=== PATIENT | female | born 1985 | race Caucasian/White ===

== ENCOUNTER 2017-06-02 15:30 | Outpatient (CLI) | payer OTHER ==
[2017-06-02] VITALS (7 sets, daily range): BP systolic 113–130; BP diastolic 68–87
[~2017-06-02] VITALS: Ht 162.6 cm; Wt 79.0 kg
[2017-06-02] MEDS ORDERED: PRENTAB9 PO (16:54)
[2017-06-02] MEDS ORDERED: ASPI81CH PO (16:54)
[2017-06-02 17:58] LABS: ALT/SGPT 13 U/L (12-78); AST/SGOT 13 U/L (15-37); BILIRUBIN,TOTAL 0.7 MG/DL (0.2-1.0); CREATININE FOR GFR 0.62 MG/DL (0.55-1.02); GLOMERULAR FILTRATION RATE > 60.0 (>60); URIC ACID 4.4 MG/DL (2.6-6.0)
--- NOTE | 2017-06-04 10:26 | HPE ---
DATE OF ADMISSION: 06/02/2017 HISTORY: 32-year-old, 2, para 1, last menstrual period (LMP) 09/11/2016, expected date of confinement (EDC) 06/18/2017, at 37 and 5 weeks of gestation with a history of preeclampsia with severe features in her last today coming in with a blood pressure of 145/77 and having brisk reflexes, but no clonus. She has no other symptoms of preeclampsia. She was seen for evaluation of presentation of possible preeclampsia. She is presently on aspirin 81 mg a day. Her past history is that in 2014 at 37 weeks, induction of labor for severe features of preeclampsia, delivered a male, 5 pounds 14 ounces. Labs show O positive. HIV negative. Hepatitis negative. RPR negative. Rubella immune. Varicella immune. Pap normal. Gonorrhea and Chlamydia are negative. One hour glucose is 125. GBS status is pending. On examination, she has no headache. No right upper quadrant pain. No visual disturbances. No edema. She does have brisk reflexes upper and lower. She does have a Category 1 strip with no contractions. Her initial blood pressure was 135/75; however, over the course of her two hour stay, her blood pressures ranged from a low 113/77 to a high of 130/87. In between, intermittently, 129/75 and 125/86. Her CBC does not seem to be available. Her urine is 1.029, pH 7, everything negative. On chemistry, uric acid was 4.4 and her liver enzymes were normal. Her protein creatinine ratio was 0.106. On reevaluation, her reflexes were still brisk, but there was no other symptoms or symptomatology. We have counseled her regarding preeclampsia symptoms. Will have her collect a 24-hour urine. She will be seen next week on Wednesday for evaluation and dating for induction of labor between 39 and 40 weeks. In summary, history with previous preeclampsia, severe features, presently investigated for late preeclampsia.
== END 2017-06-02 19:00 | disposition home or self-care (01) ==
LOC: M LDO 15:30
PROVIDERS: ATTEND Obstetrics & Gynecology
DX: O26.893 Other specified pregnancy related conditions, third trimester (principal); Z3A.37 37 weeks gestation of pregnancy; R03.0 Elevated blood-pressure reading, without diagnosis of hypertension; Z79.82 Long term (current) use of aspirin; Z88.1 Allergy status to other antibiotic agents

== ENCOUNTER → 2017-06-03 | Outpatient (REF) | payer OTHER ==
[~2017-06-03] MED LIST: ASPI81CH PO; COLA100C5 PO; IBUP-1114 PO; OXYC1TAB23 PO; PRENTAB9 PO
== END ==
LOC: M LAB REF 20:20
PROVIDERS: ATTEND Obstetrics & Gynecology
DX: Z36 Encounter for antenatal screening of mother (principal); Z3A.00 Weeks of gestation of pregnancy not specified

== ENCOUNTER 2017-06-16 11:39 | Inpatient (IN) | payer OTHER ==
[~2017-06-16] VITALS: Ht 165.1 cm; Wt 80.0 kg
[2017-06-16] VITALS (23 sets, daily range): BP systolic 111–143; BP diastolic 72–97
[~2017-06-16 11:39] MED LIST changes: -COLA100C5 PO; -IBUP-1114 PO; -OXYC1TAB23 PO
[2017-06-16] MEDS ORDERED: miSOPROStol 50 MCG 1/2 TAB (S0191) PO ONE (12:45)
[2017-06-16 13:40] LABS: MEAN CORPUSCULAR HEMOGLOBIN 32.8 pg (27.0-33.0); MEAN CORPUSCULAR VOLUME 91.1 fl (80.0-96.0); RED CELL DISTRIBUTION WIDTH 12.9 % (11.5-14.5); WHITE BLOOD COUNT 8.2 K/mm3 (4.0-10.0)
[2017-06-16 14:07] LABS: ALT/SGPT 13 U/L (12-78); AST/SGOT 16 U/L (15-37); BILIRUBIN,TOTAL 0.7 MG/DL (0.2-1.0); CREATININE FOR GFR 0.59 MG/DL (0.55-1.02); GLOMERULAR FILTRATION RATE > 60.0 (>60); URIC ACID 5.2 MG/DL (2.6-6.0)
--- NOTE | 2017-06-16 14:23 | HPE ---
DATE OF ADMISSION: 06/16/2017 This lady is a 32-year-old 2, para 1, LMP 09/11/2016, EDC 06/18/2017 at 39 and 5, induction of labor because a history of severe preeclampsia previously. Her risk factors is polycystic ovary syndrome (PCOS) and had Clomid for induction of ovulation and she has a history of preeclampsia. PAST HISTORY: In 2014 at 37 weeks spontaneous vaginal delivery male 5 pounds 14 ounces with severe preeclampsia features. LABORATORY DATA: O+, hepatitis negative, HIV negative, RPR negative, rubella immune, varicella immune. Pap normal. Urine negative. Gonorrhea and chlamydia are negative. 1-hour glucose 125. GBS is negative. Urine is 10/10, pH 6 negative. Blood pressure is 135/90, temperature is 98.6 pulse is 79 and respirations are 18. On physical examination she is in no acute distress. Has a category I strip with occasional tightenings and contractions, which she does not feel. Symphysis fundus height is 40. Four-quadrant bowel sounds are noted. Vertex occiput anterior (OA) -3 station, soft cervix, 70% effaced, 1-2 cm posterior. Reflexes are +2 and no pedal edema. The rest the examination is normocephalic, atraumatic. Neck: Full range of motion. Pupils equal and reactive to light. Distal pulses symmetric. No evidence of deep venous thrombosis (DVT), pulmonary embolus (PE) or superficial phlebitis. Chest is clear bilaterally to bases. No wheezes or rhonchi. No CVA tenderness. Symphysis fundus height is appropriate. Four quadrant bowel sounds are noted. No rashes, lesions or pruritus. No arthralgia, myalgia. No complaints of cough, wheeze, shortness of breath or dyspnea on exertion. No allergies. No chest pain. No bleeding. Neuro complete. No incontinency, urgency or frequency. No nausea, vomiting, diarrhea, constipation. No diabetic issues. No [employer]CRE[employer]ING [employer] issues. PAST MEDICAL HISTORY: Negative. Past surgical history unremarkable. Family history noncontributory. She does not smoke, drink or abuse drugs and she is . There is no domestic violence. In summary we have a patient with a history of severe preeclampsia last time admitted for induction of labor because of severe preeclampsia last time was on ASA this time. Intermittent blood pressures were mid range throughout her . Presently her blood pressure is 135/90. Plan of management is Cytotec. Softening of the cervix possible induction, augmentation with Faria bulb and Pitocin. Patient is anticipating an epidural presently category I strip and safe to proceed.
--- NOTE | 2017-06-16 16:42 | REP ---
Limited obstetric sonography: History: Biophysical profile assessment. Non reassuring stress test. Findings: A viable single intrauterine gestation is seen in a cephalic lie. A posterior fundal placenta is seen grade 3 without evidence of previa or abruption. Question anterior succenturiate lobe. Closed cervical length is normal at 3.2 cm viewed transabdominally. SD ratio and umbilical cord artery by Doppler is normal at 1.96. Biophysical profile score is eight out of a possible eight. JOYCE is normal 17.2 cm. heart rate is recorded at 139 beats per minute. Signed by Linwood Samson MD 06/16/2017 05:11 P
[2017-06-16] MEDS ORDERED: OXYTOCIN DRIP 30 UNITS in APPROPRIATE DILUENT 1 EA IV SCH (17:30)
[2017-06-16] MEDS: LR 1,000 ML IV SCH ×2 (18:29→20:45)
[2017-06-17] VITALS (32 sets, daily range): BP systolic 100–148; BP diastolic 63–96
[2017-06-17] MEDS: LR 1,000 ML IV SCH ×3 (04:45→20:45)
[2017-06-17] MEDS ORDERED: FENTANYL 2MCG/ML ROPIVACAINE 0.2% IN 0.9% NACL 200ML IVBAG As Ordered ONE (06:23)
[2017-06-17] MEDS ORDERED: diphenhydrAMINE INJ 50MG/ML VIAL (J1200) IV PRN ×2 (07:45→16:03)
[2017-06-17] MEDS ORDERED: ONDANSETRON 4MG/2ML VIAL (J2405) IV PRN ×3 (07:45→16:03)
[2017-06-17] MEDS ORDERED: EPIDURAL COMMENT XX SCH (07:45)
[2017-06-17] MEDS ORDERED: LACTATED RINGER'S 1000 ML IV PRN (07:45)
[2017-06-17] MEDS ORDERED: NALOXONE INJ 0.4 MG/1 ML VIAL (J2310) IV PRN ×3 (07:45→15:41)
[2017-06-17] MEDS ORDERED: ePHEDrine SULFATE 25 MG/5 ML(5MG/ML) SYRINGE IV PRN (07:45)
[2017-06-17] MEDS ORDERED: EPIDURAL/PCA KEYS XX PRN (07:45)
[2017-06-17] MEDS ORDERED: REFRIGERATOR IV KEYS XX PRN (07:45)
[2017-06-17] MEDS ORDERED: FENTANYL/ROPIVACAINE/NACL BAG 200 ML EPIDURAL SCH (07:45)
--- NOTE | 2017-06-17 08:05 | IPNPDOC ---
Text Note Date of Service The patient was seen on 06/17/17. NOTE SBAR from Dr Lanza at ~0715 H&P reviewed and met the pt FHT is Cat 2 with intermittent decels surrounded by pos accels and mod mara. This has been occurring most of her admission. To this point has been responsive to resuscitative measures. Now s/p epidural, feeling well Cx 3/90/-2/vtx well applied/BBOW a/p: Doing well, but the decels that occur are concerning for possible future issues, will watch closely. Pit to 4 mu/min from 8 mu/min to see if cont's to hopefully contract regularly. Plan to check in ~4 hrs, sooner prn. Sessions VS,Noah, I+O VS, Noah I+O Laboratory Tests 06/16/17 13:20 Red Blood Count 4.16, Mean Corpuscular Volume 91.1, Mean Corpuscular Hemoglobin 32.8, Mean Corpuscular Hemoglobin Concent 36.0, Red Cell Distribution Width 12.9 , Aspartate Amino Transf (AST/SGOT) 16, Alanine Aminotransferase (ALT/SGPT) 13, Lactate Dehydrogenase 178, Total Bilirubin 0.7, Uric Acid 5.2 Vital Signs Date Time Temp Pulse Resp B/P (MAP) Pulse Ox O2 Delivery O2 Flow Rate FiO2 06/17/17 03:52 98.0 64 18 140/93 (109) SESSIONS,EYAL Hall MD Jun 17, 2017 08:05
[2017-06-17] MEDS ORDERED: BICITRA 30ML SOLN UDC PO ONE (14:45)
[2017-06-17] MEDS ORDERED: CLINDAMYCIN 900 MG in APPROPRIATE DILUENT 1 EA IV ONE (14:45)
[2017-06-17] MEDS ORDERED: AZITHROMYCIN INJ 500MG VIAL (J0456) As Ordered ONE (15:06)
[2017-06-17] MEDS ORDERED: AZITHROMYCIN INJ 500 MG, VIAL MATE ADAPTER 1 EACH in D5W 250 ML IV ONE (15:15)
[2017-06-17] MEDS ORDERED: NALBUPHINE HCL 10 MG/ML AMP (J2300) IV PRN (15:41)
[2017-06-17] MEDS ORDERED: METOCLOPRAMIDE INJ 10MG/2ML VIAL (J2765) IV PRN (15:41)
[2017-06-17] MEDS ORDERED: LIDOCAINE 2% W/EPIN INJ 20ML **PRES FREE As Ordered ONE (15:51)
[2017-06-17] MEDS ORDERED: ONDANSETRON 4MG/2ML VIAL (J2405) As Ordered ONE (15:51)
[2017-06-17] MEDS ORDERED: KETOROLAC 60 MG/2 ML VIAL (J1885) As Ordered ONE (15:51)
[2017-06-17] MEDS ORDERED: MORPHINE PRES-FREE INJ 10 MG/10 ML VIAL (J2274) As Ordered ONE (15:51)
[2017-06-17] MEDS ORDERED: OXYTOCIN INJ 10 UNITS/ML VIAL (J2590) As Ordered ONE (15:51)
[2017-06-17] MEDS ORDERED: SODIUM BICARBONATE 8.4% INJ 50MEQ 50 ML VIAL As Ordered ONE (15:51)
[2017-06-17] MEDS ORDERED: fentaNYL 100 MCG/2 ML INJECTION (J3010) IV PRN (16:03)
[2017-06-17] MEDS ORDERED: MEPERIDINE INJ 25 MG/ML VIAL (J2175) IV PRN (16:03)
[2017-06-17] MEDS ORDERED: OXYTOCIN 30 UNITS IN 0.9% NaCl 500ML IV BAG (J2590) As Ordered ONE (16:56)
[2017-06-17 18:18] LABS: CORD GAS ABE A -2.9; CORD GAS ABE V -6.4; CORD GAS HCO3 A 25.5 MEQ/L; CORD GAS HCO3 V 20.4 MEQ/L; CORD GAS O2 SAT A < 15.0 %; CORD GAS PCO2 A 58.3 mmHg; CORD GAS PCO2 V 44.8 mmHg; CORD GAS PH A 7.258 UNITS; CORD GAS PH V 7.276 UNITS; CORD GAS PO2 A 10.8 mmHg; CORD GAS PO2 V 28.3 mmHg; CORD GAS SBC V 18.5 MEQ/L; CORD GAS TCO2 A 27.2 MEQ/L; CORD GAS TCO2 V 21.8 MEQ/L
[2017-06-17] MEDS ORDERED: OXYTOCIN DRIP 30 UNITS in APPROPRIATE DILUENT 1 EA IV SCH ×2 (19:30→20:00)
[2017-06-17] MEDS ORDERED: LR 1,000 ML IV SCH (21:46)
[2017-06-17] MEDS: KETOROLAC 30 MG/ML VIAL (J1885) IV SCH (22:00)
[2017-06-17] MEDS ORDERED: PERCOCET 5MG/325MG TAB PO PRN (22:00)
[2017-06-17] MEDS ORDERED: MEASLES,MUMPS,RUBELLA VACCINE INJ (MMR-II) (90707) SC SCH (22:00)
[2017-06-17] MEDS ORDERED: RHOGAM 300 MCG (1500 IU) INJ (J2790) IM SCH (22:00)
[2017-06-18 02:02] VITALS: BP 111/75
[2017-06-18] MEDS: KETOROLAC 30 MG/ML VIAL (J1885) IV SCH ×3 (04:12→15:22)
[2017-06-18 05:21] VITALS: BP 120/72
--- NOTE | 2017-06-18 07:26 | IPNPDOC ---
Text Note Date of Service The patient was seen on 06/18/17. NOTE POD1 prog note States feeling well, no complaints. No heavy VB. Pain controlled. Ambulatory. Faria to be removed soon. Bonding well and breast feeding well. VSSAF CTAB RRR Ut at U-2, firm Ext no [employer] CDI, bandage removed minimal strikethru UO adeq CBC pending a/p: Doing well. Routine postop care. Sessions MD HINES,Noah, I+O VSNoah I+O Vital Signs Date Time Temp Pulse Resp B/P (MAP) Pulse Ox O2 Delivery O2 Flow Rate FiO2 06/18/17 05:21 98.4 81 18 120/72 (88) 95 Room Air I&O- Last 24 Hours up to 6 AM 06/18/17 06:00 Output Total 1175 ml Balance -1175 ml SESSIONS,EYAL Hall MD Jun 18, 2017 07:26
[2017-06-18 07:34] LABS: MEAN CORPUSCULAR HEMOGLOBIN 33.6 pg (27.0-33.0); MEAN CORPUSCULAR HGB CONC 36.1 g/dl (32.0-36.5); MEAN CORPUSCULAR VOLUME 92.9 fl (80.0-96.0); RED CELL DISTRIBUTION WIDTH 13.1 % (11.5-14.5); WHITE BLOOD COUNT 11.1 K/mm3 (4.0-10.0)
[2017-06-18] MEDS: PRENATAL VITAMINS CHEWABLE TABLET PO SCH (09:00)
[2017-06-18] MEDS: DOCUSATE SODIUM 100 MG CAP PO SCH ×2 (09:00→22:00)
[2017-06-18 10:00] VITALS: BP 113/69
[2017-06-18 14:00] VITALS: BP 120/71
[2017-06-18 18:17] VITALS: BP 118/74
[2017-06-18 22:00] VITALS: BP 125/74
[2017-06-18] MEDS: PERCOCET 5MG/325MG TAB PO PRN (22:01)
[2017-06-18] MEDS: IBUPROFEN 800 MG TAB PO SCH (23:52)
[2017-06-19] MEDS: PERCOCET 5MG/325MG TAB PO PRN (04:26)
[2017-06-19 06:27] VITALS: BP 113/66
[2017-06-19] MEDS: IBUPROFEN 800 MG TAB PO SCH (07:35)
[2017-06-19] MEDS: DOCUSATE SODIUM 100 MG CAP PO SCH (07:35)
[2017-06-19] MEDS: PRENATAL VITAMINS CHEWABLE TABLET PO SCH (07:36)
[2017-06-19 10:05] LABS: MEAN CORPUSCULAR HEMOGLOBIN 32.7 pg (27.0-33.0); MEAN CORPUSCULAR HGB CONC 35.3 g/dl (32.0-36.5); MEAN CORPUSCULAR VOLUME 92.7 fl (80.0-96.0); WHITE BLOOD COUNT 10.3 K/mm3 (4.0-10.0)
--- NOTE | 2017-06-19 10:44 | DS.PDOC ---
Discharge Summary General Date of Admission Jun 16, 2017 at 11:39 Date of Discharge [id number] Discharge Summary PROCEDURES PERFORMED DURING STAY: Primary Delivery ADMITTING DIAGNOSIS: 1. Induction, history of severe pre-eclampsia DISCHARGE DIAGNOSES: 1. Healthy HOSPITAL COURSE: Admitted for induction and over time developed a non- reassuring heart tracing, we were unable to further augment with pitocin and did not progress past 7 cm dilation. Occiput posterior noted at time of . DISCHARGE MEDICATIONS: Motrin, Percocet, Colace, Lanolin Physical exam: see note from this morning LABORATORY DATA: Please see below. ACTIVITY: as tolerated. Nothing in vagina for 6 weeks. No bathing for 4 weeks. No driving for 2 weeks. DIET: regular DISPOSITION:stable TIME SPENT ON DISCHARGE: Greater than 15 minutes. Sessions Vital Signs/I&Os Vital Signs Date Time Temp Pulse Resp B/P (MAP) Pulse Ox O2 Delivery O2 Flow Rate FiO2 06/19/17 06:27 97.6 75 18 113/66 (82) 06/19/17 04:56 98 06/18/17 14:00 Room Air I&O- Last 24 Hours up to 6 AM 06/19/17 06:00 Intake Total 720 ml Output Total 1075 ml Balance -355 ml Laboratory Data CBC/BMP Laboratory Tests 06/19/17 09:57 Red Blood Count 2.90 L, Mean Corpuscular Volume 92.7, Mean Corpuscular Hemoglobin 32.7, Mean Corpuscular Hemoglobin Concent 35.3, Red Cell Distribution Width 13.0 Discharge Medications Scheduled Multivitamins/ ( 27-0.8 mg) 1 Tab Tab, 1 TAB PO DAILY, (Reported ) Miscellaneous Medications (Aspirin) 81 Mg Chw, 81 MG PO, (Reported) Allergies Coded Allergies: Cephalexin (Verified Allergy, Unknown, 06/16/17) RASH EYAL PETERS MD Jun 19, 2017 10:44
--- NOTE | 2017-06-19 10:45 | IPNPDOC ---
Text Note Date of Service The patient was seen on 06/19/17. NOTE POD2 prog note States feeling well, no complaints. No heavy VB. Pain controlled. Ambulatory. UOP adequate. Bonding well and breast feeding well. VSSAF CTAB RRR Ut at U-2, firm Ext no [employer]CE [employer] CDI UO adeq CBC repeated this AM due to HCT 10 pt drop and PLT's 108 yest, This AM HCT 26.8, PLT 131 a/p: Doing well. d/c home Sessions Noah SOLANO, I+O VSNoah I+O Laboratory Tests 06/19/17 09:57 Red Blood Count 2.90 L, Mean Corpuscular Volume 92.7, Mean Corpuscular Hemoglobin 32.7, Mean Corpuscular Hemoglobin Concent 35.3, Red Cell Distribution Width 13.0 Vital Signs Date Time Temp Pulse Resp B/P (MAP) Pulse Ox O2 Delivery O2 Flow Rate FiO2 06/19/17 06:27 97.6 75 18 113/66 (82) 06/19/17 04:56 98 06/18/17 14:00 Room Air I&O- Last 24 Hours up to 6 AM 06/19/17 06:00 Intake Total 720 ml Output Total 1075 ml Balance -355 ml SESSIONS,EYAL Hall MD Jun 19, 2017 10:45
[2017-06-19] MEDS ORDERED: COLA100C5 PO (10:57)
[2017-06-19] MEDS ORDERED: OXYC1TAB23 PO (10:58)
[2017-06-19] MEDS ORDERED: IBUP-1114 PO (10:58)
--- NOTE | 2017-06-20 08:04 | RO ---
DATE OF PROCEDURE: 06/17/2017 Reason for the late dictation is that this afternoon/evening all of the systems in the whole hospital went down and as of the next morning when I left the dictation system was still not operable. I am back today seeing patients on labor and delivery and this is the first chance I have had to actually dictate this case. PREOPERATIVE DIAGNOSIS: Non-reassuring heart tracing, inability to augment. POSTOPERATIVE DIAGNOSIS: Non-reassuring heart tracing, inability to augment, left occiput posterior presentation. OPERATIVE PROCEDURE: Primary low transverse section. SURGEON: Gene Cash MD LABOR AND DELIVERY NURSE: Bonnie Aldana CNM ANESTHESIA: Epidural. ESTIMATED BLOOD LOSS: 600 mL. DRAINS: 100 mL of clear urine at the end of the case in the Faria catheter. FLUIDS REPLACED: 800 mL of Lactated Ringer's. PREOPERATIVE ANTIBIOTICS: Clindamycin and azithromycin. SPECIMENS: None. FINDINGS: Left occiput posterior, clear fluid, scores 8 and 9, male, 3594 grams, 7 pounds 15 ounces. INDICATION: Patient was admitted the day prior for induction due to a history of severe preeclampsia, at term. She had an uncomplicated induction other than intermittent decelerations that began to become more frequent and more prolonged. It got to a point where we could not safely augment her with pitocin and despite being internalized, she never obtained adequate [place] units and also never changed her cervix past 7 cm over several hours. Because of the nature of her decelerations and the non-reassuring heart rate status, it was recommended to undergo a primary delivery. The patient agreed and informed consent was obtained and the procedure itself was uncomplicated. DESCRIPTION OF OPERATION: Patient was taken to the operating room with an IV in place, an epidural in place and a Faria catheter in place. She was placed onto the table in doral supine position with a leftward tilt. heart tones in the operating room were normal. After the epidural bolus, she was prepped and draped in a normal sterile fashion and with an Allis clamp, confirmed that the epidural dose was adequate to proceed. A Pfannenstiel skin incision was carried down to the layer of the fascia, which was nicked in the midline and extended bilaterally the extent of the skin incision. Kochers were placed in the superior aspect of the fascial incision, tented up, and the underlying rectus muscles were dissected of sharply. This was repeated inferiorly without difficulty. The rectus muscles were in the midline. With my finger I breached the peritoneum and the peritoneal cavity was clear. A gentle stretching maneuver easily created a peritoneal window that was adequate. A bladder blade was placed, a bladder flap was easily created, and a low transverse uterine incision was then performed. Amniotomy showed clear fluid. The incision was stretched to adequacy and the infants head was delivered easily in a flexed position through the hysterotomy. With fundal pressure, the infants shoulders then delivered and the vigorous infant was handed off to the waiting resuscitation team after the cord was clamped times two and cut. Cord blood was obtained. Cord gases were obtained, which were arterial, pH 7.2 with a base excess of -2.9 and venous with a pH of 7.2 and a base excess of -6.4. The placenta was delivered under traction and fundal massage and with the IV pitocin running wide open. The uterus was then delivered through the abdomen, wrapped in a warm sponge, and cleared of all clots and debris times two using a dry sponge. The hysterotomy was closed with a running suture of #0 Vicryl from left to right in a locked fashion. The imbrication stitch was then done with #0 Monocryl without difficulty from left to right. Tone was excellent. Irrigation was performed behind the uterus. The uterus was returned to the abdomen. The colic gutters were cleared bilaterally and final inspection of the uterine incision showed hemostasis. The peritoneum was closed with a running #3-0 Vicryl from top to bottom without difficult and the rectus muscles were inspected and found to be hemostatic. The fascia was closed from left to right without difficulty using an #0 Vicryl. The subcutaneous tissue was copiously irrigated and made to be hemostatic and closed with #3-0 Vicryl from left to right without difficulty. The skin was then closed from left to right with a #4-0 Monocryl using a subcuticular stitch without difficulty. Steri-Strips were placed. Pressure dressing was placed and the patient's legs were frogged. I then did a bimanual exam. The uterus was -1 and firm and a small amount of clots and debris were cleared from the vagina and cervix. The patient was taken to the recovery area in stable condition. All counts were correct times three including sponge, needles and instruments.
== END 2017-06-19 12:35 | disposition home or self-care (01) | DRG 766 ==
LOC: M LDI 11:39 → M OBS 06-17 19:01
PROVIDERS: ADMIT Obstetrics & Gynecology; ATTEND Obstetrics & Gynecology
PROC: 3E0P7GC Introduction of Other Therapeutic Substance into Female Reproductive, Via Natural or Artificial Opening (ICD-10-PCS; 2017-06-16)
PROC: 10D00Z1 Extraction of Products of Conception, Low, Open Approach (ICD-10-PCS; principal; 2017-06-17 07:40)
DX: O32.8XX0 Maternal care for other malpresentation of fetus, not applicable or unspecified (principal); Z37.0 Single live birth; O76 Abnormality in fetal heart rate and rhythm complicating labor and delivery; Z3A.39 39 weeks gestation of pregnancy

== ENCOUNTER → 2018-02-08 | Outpatient (REF) | payer OTHER | LOC: M LAB REF 18:04 | DX: Z12.4 Encounter for screening for malignant neoplasm of cervix (principal) ==